=== PATIENT | female | born 1945 | race Caucasian/White ===

== ENCOUNTER → 2020-12-29 | Outpatient (CLI) | payer MEDICARE | LOC: CT 08:30 | DX: R10.9 Unspecified abdominal pain (principal); R91.1 Solitary pulmonary nodule; K31.89 Other diseases of stomach and duodenum | CPT/HCPCS: Q9967 ==

== ENCOUNTER → 2021-06-03 | Outpatient (CLI) | payer MEDICARE | LOC: MAMO 13:00 | DX: Z12.31 Encounter for screening mammogram for malignant neoplasm of breast (principal); Z90.12 Acquired absence of left breast and nipple | CPT/HCPCS: 77063; 77067 ==